=== PATIENT | female | born 1955 | race Caucasian/White ===

== ENCOUNTER 2017-03-11 14:58 | Inpatient (IN) | payer OTHER ==
[2017-03-11] MEDS ORDERED: Lactated Ringers 500 ML IV ONE (15:17)
[2017-03-11] MEDS ORDERED: Naloxone 0.4 MG/ML SDV IV PRN (15:22)
[2017-03-11] MEDS ORDERED: Bupivacaine 0.5%/EPINEPHrine 1:200,000 50 ML MDV ONE (15:24)
[2017-03-11] MEDS ORDERED: HYDROmorphone/Normal Saline 15 MG/30 ML PCA IV PRN (15:30)
[2017-03-11] MEDS ORDERED: Dextrose 5%-Lactated Ringers 1,000 ML IV SCH (15:30)
[2017-03-11] MEDS ORDERED: Propofol 200 MG/20 ML SDV ONE (15:43)
[2017-03-11] MEDS ORDERED: Dexamethasone 4 MG/ML SDV ONE (15:43)
[2017-03-11] MEDS ORDERED: Neostigmine Methylsulfate 1 MG/ML 5 ML Syringe ONE (15:43)
[2017-03-11] MEDS ORDERED: fentaNYL 250 MCG/5 ML SDV ONE (15:43)
[2017-03-11] MEDS ORDERED: Ondansetron 4 MG/2 ML SDV ONE (15:43)
[2017-03-11] MEDS ORDERED: Rocuronium 50 MG/5 ML Vial ONE (15:43)
[2017-03-11] MEDS ORDERED: Succinylcholine/Normal Saline 200 MG/10 ML Syringe ONE (15:43)
[2017-03-11] MEDS ORDERED: cefOXitin 2 GM in Sodium Chloride 0.9% 50 ML IV ONE (15:45)
[2017-03-11] MEDS ORDERED: Aztreonam/Dextrose-Water 1 GM in Premix Bag 1 BAG IV ONE (16:45)
[2017-03-11] MEDS ORDERED: Lactated Ringers 1,000 ML ONE (16:48)
[2017-03-11] MEDS ORDERED: hydrOXYzine HCl 25 MG Tab PO PRN (18:04)
[2017-03-11] MEDS ORDERED: hydrOXYzine HCl 100 MG/2 ML SDV IM PRN (18:04)
[2017-03-11] MEDS ORDERED: Ondansetron 4 MG/2 ML SDV IVPUSH PRN (18:05)
[2017-03-11] MEDS: Dextrose 5%-Lactated Ringers 1,000 ML IV SCH (18:24)
[2017-03-11] MEDS ORDERED: Pantoprazole 40 MG Vial IV SCH (19:00)
[2017-03-11] MEDS: cefOXitin 2 GM in Sodium Chloride 0.9% 50 ML IV SCH (20:29)
[2017-03-12] MEDS ORDERED: Sodium Chloride 0.9% 50 ML ONE (00:07)
[2017-03-12] MEDS: Aztreonam/Dextrose-Water 1 GM in Premix Bag 1 BAG IV SCH ×4 (00:21→23:47)
[2017-03-12] MEDS: Dextrose 5%-Lactated Ringers 1,000 ML IV SCH ×3 (00:27→19:57)
[2017-03-12] MEDS: cefOXitin 2 GM in Sodium Chloride 0.9% 50 ML IV SCH ×4 (02:36→20:36)
[2017-03-12] MEDS ORDERED: Aspirin 325 MG Tab.EC PO PRN (08:07)
[2017-03-12] MEDS: Bisacodyl 5 MG Tab PO SCH ×2 (08:47→20:37)
--- NOTE | 2017-03-12 09:26 | PN ---
DATE OF SERVICE: 03/12/2017 SUBJECTIVE: Shawanda is postop day one. She states her pain is controlled. She has no questions or concerns. OBJECTIVE: GENERAL: Shawanda is a 61-year-old female. She is alert and orientated, lying in bed. VITAL SIGNS: TPR 98, 60, 16, blood pressure 116/52. HEENT: Negative. NECK: Supple. HEART: Regular rate and rhythm. LUNGS: Clear. ABDOMEN: Dressings dry and intact. Abdominal binder is on. EXTREMITIES: Without peripheral edema. ASSESSMENT: Laparotomy, appendectomy with partial cecectomy for perforated appendix and drainage of periappendiceal abscess. PLAN: 1. Decrease IV to 100 mL per hour. 2. Discontinue Montoya catheter. 3. Full liquid diet. 4. Dulcolax two tabs b.i.d. until BM. 5. We will evaluate p.r.n. or in a.m. Ines Olson PA-C /[id number]
[2017-03-12] MEDS: Pantoprazole 40 MG Vial IV SCH (17:02)
[2017-03-13] MEDS: cefOXitin 2 GM in Sodium Chloride 0.9% 50 ML IV SCH (03:21)
[2017-03-13] MEDS ORDERED: Acetaminophen 325 MG Tab PO PRN (08:15)
[2017-03-13] MEDS: Acetaminophen/HYDROcodone 325-5 MG Tab PO PRN ×3 (08:38→19:47)
[2017-03-13] MEDS: Ibuprofen 600 MG Tab PO SCH ×3 (08:38→21:03)
[2017-03-13] MEDS: Aztreonam/Dextrose-Water 1 GM in Premix Bag 1 BAG IV SCH ×3 (08:41→23:21)
[2017-03-13] MEDS: Bisacodyl 5 MG Tab PO SCH (08:43)
[2017-03-13] MEDS: Doxycycline 100 MG in Sodium Chloride 0.9% 100 ML IV SCH ×2 (10:03→20:47)
--- NOTE | 2017-03-13 12:59 | PN ---
DATE OF SERVICE: 03/13/2017 SUBJECTIVE: Shawanda is postop day #2. She said she is feeling better. She is up ambulating. Her pain is controlled. She has no other questions or concerns. OBJECTIVE: GENERAL: Shawanda is a 61-year-old female, who is alert and oriented, sitting up in the chair. VITAL SIGNS: TPR is 98.1, 69, 18, blood pressure 139/73. HEENT: Negative. NECK: Supple. HEART: Regular rate and rhythm. LUNGS: Clear. ABDOMEN: Dressings dry and intact. Abdominal binder is on. EXTREMITIES: Without peripheral edema. ASSESSMENT: Laparoscopic appendectomy with partial cecectomy for perforated appendix and drainage of periappendiceal abscess. Date of surgery is 03/11/2017. PLAN: 1. Discontinue [employer] and continuous pulse ox. 2. [place] 5/325 mg 1 to 2 q.4 hours p.r.n. pain. 3. Ibuprofen 600 mg q.6 hours scheduled. 4. Discontinue cefoxitin. 5. Doxycycline 100 mg IV q.12 hours. 6. Tylenol 650 mg hours p.r.n. pain. 7. Saline lock IV. 8. Good pulmonary toilet encouraged. 9. Communication order written that no [place] after midnight. The patient requests to drive home and planned discharge in a.m. Ines Olson PA-C /[id number]
[2017-03-13] MEDS: Pantoprazole 40 MG Vial IV SCH (17:38)
[2017-03-14] MEDS: Acetaminophen/HYDROcodone 325-5 MG Tab PO PRN (02:20)
[2017-03-14] MEDS: Ibuprofen 600 MG Tab PO SCH ×2 (02:21→08:28)
[2017-03-14] MEDS: Aztreonam/Dextrose-Water 1 GM in Premix Bag 1 BAG IV SCH (07:37)
[2017-03-14 07:57] VITALS: BP 133/63
[2017-03-14] MEDS: Doxycycline 100 MG in Sodium Chloride 0.9% 100 ML IV SCH (08:26)
--- NOTE | 2017-03-14 10:51 | DISCH ---
ADMISSION DIAGNOSIS: Acute appendicitis. DISCHARGE DIAGNOSES: 1. Laparoscopic appendectomy with partial cecectomy for perforated appendix and drainage of periappendiceal abscess. Date of surgery, 03/11/2017. 2. Appendix abscess, wound culture final Citrobacter Braakii. HISTORY: Shawanda Harkins is a 61-year-old female who presented to the emergency room with abdominal pain. After preoperative evaluation and discussion of possible risks and possible complications, she wished to proceed with surgical procedure. HOSPITAL COURSE: Shawanda had her surgery on 03/11/2017. She had no operative complications. She was on IV antibiotics. On postop day #1, she was started on a clear liquid diet and advanced as tolerated. On postop day #2, her Montoya catheter was discontinued. She was given bowel stimulation. On postop day #3, she was changed to oral pain medication. Her antibiotics were changed to doxycycline 100 mg IV q.12 hours. IV was saline locked. On postop day #3, she was able to be discharged to home. PHYSICAL EXAMINATION: GENERAL: Shawanda Harkins is a 61-year-old female. VITAL SIGNS: Height is 5 feet 4.96 inches. Weight is 220 pounds. TPR is 97.2, 69, 16, and blood pressure 133/63. HEENT: Negative. NECK: Supple. HEART: Regular rate and rhythm. LUNGS: Clear. ABDOMEN: Dressings dry and intact. Abdominal binder is on. EXTREMITIES: Without peripheral edema. DISPOSITION: Discharged to home. CONDITION: Stable and improving. FOLLOWUP APPOINTMENT: With Ines Olson PA-C, on 03/21/2017 at 10 a.m. HOME MEDICATIONS: 1. Doxycycline 100 mg q.12 hours, #14. 2. [place] 5/325 mg 1 to 2 tabs every 4 hours p.r.n. pain, #50. 3. Ibuprofen 600 mg q.6 hours scheduled, #40, to take with food. 4. She is to resume her home medications. DIET: Usual diet as tolerated. Drink 8 to 10 glasses of water a day. ACTIVITY: No lifting greater than 10 pounds for 2 weeks[address]riving, do not drive while on pain medication. Shower/bathing, may shower. DISCHARGE INSTRUCTIONS: Notify provider if any fever, increased pain, nausea, or vomiting. Keep site clean and dry. Wear abdominal binder for 2 weeks and then as tolerated. Use incentive spirometer 10 times every hour while awake for 2 weeks.
--- NOTE | 2017-03-17 16:08 | OR ---
DATE OF PROCEDURE: 03/11/2017 PREOPERATIVE DIAGNOSIS: Acute appendicitis. POSTOPERATIVE DIAGNOSES: Perforated appendicitis with necrosis extending into the cecal base with a pericolonic abscess. ANESTHESIA: General. INDICATIONS FOR PROCEDURE: A 61-year-old presenting to the emergency room with 48-hour history of some abdominal discomfort. Workup was consistent with acute appendicitis, on CT scan as well as the clinical presentation. Plan is to proceed with a diagnostic laparoscopy, laparotomy if necessary with appendectomy and drainage of any periappendiceal fluid or abscess that might be present. Potential risks of procedure including bleeding, infection, leaks from various GI tract closures, injury to underlying lung and viscera, as well as possibility of cardiopulmonary, septic, or hemorrhagic complications leading to were discussed, and the patient wishes to proceed. DETAILS OF PROCEDURE: The patient was taken to the operating room and placed in a supine position. After general endotracheal anesthesia was induced, a Montoya catheter was inserted and the abdomen prepped and draped. Three fingerbreadths superior and to the left of the umbilicus, a transverse incision was made and the peritoneal cavity entered under direct vision with Optiview trocar inflated to 15 mmHg pressure of CO2. Laparoscope was then reinserted. No underlying trocar insertion site injuries were seen. Following this, a 12 mm trocars placed in the left lower quadrant as well as right upper quadrant and the abdomen examined. The patient was noted to have an obvious appendicitis with quite a bit in the way of necrosis, there was some necrotic fat around it as well as necrosis of the appendix, marked inflammation and necrosis extended somewhat onto the cecum; therefore, a partial cecectomy was performed, in addition to the appendectomy. Additionally, there was a pericolonic abscess. This extended up all from the adjacent to the appendiceal up along the pericolic gutter adjacent to the cecum. This abscess was evacuated and cultures sent. At this point, the base of the appendix was from its mesentery. This allowed dissection down onto the cecum somewhat, and the cecum then divided with 2 firings of the KATY purple load. The remaining mesenteric attachments to the appendix were then divided with a combination of mesenteric loads and Harmonic scalpel, and the specimen consisting of the appendix and adjacent segment of cecum delivered through the left lower quadrant trocar site. At this point, no further problems were noted. The staple lines were noted to be intact. The Sameer-Moon drain was taken through a stab wound in the right flank and taken adjacent to the cecectomy site and from there down into the pelvis. At that point, the trocars were sequentially removed. The fascia at the 12 mm sites was closed with 0 Vicryl stitch and the skin with a 4-0 Vicryl skin stitch. Dressing was applied. The patient was taken to the recovery room in satisfactory condition. There were no other complications. Ayush Ma MD /[id number]
== END 2017-03-14 10:10 | disposition home or self-care (01) | DRG 331 ==
LOC: JP.2SS 14:58
PROVIDERS: ADMIT Surgery; ATTEND Surgery
DX: K35.3 Acute appendicitis with localized peritonitis (principal); B96.89 Other specified bacterial agents as the cause of diseases classified elsewhere; E78.5 Hyperlipidemia, unspecified; E66.9 Obesity, unspecified; Z68.37 Body mass index [BMI] 37.0-37.9, adult
CPT/HCPCS: 74177; 74177-26; 87070; 87075; 87077; 87186; 87205; 88304; 94762; A9270-GY; C9113; J0694; J1100; J1170; J2405; J2704; J3010; J3490; J7030; J7042; J7050; J7120; Q9965